=== PATIENT | male | born 1935 | race Caucasian/White ===

== ENCOUNTER 2019-08-26 12:25 | Inpatient (IN) | payer MEDICARE ==
[~2019-08-26] VITALS: Ht 160 cm; Wt 65.9 kg
[2019-08-26] MEDS ORDERED: morphine 4 MG/ML inj SYRINge IV PRN (12:50)
[2019-08-26] MEDS ORDERED: normal saline 1000ML IV soln IVB ONE ×2 (12:50→13:05)
[2019-08-26] MEDS ORDERED: ondansetron/PF 4mg/2ml inj IV ONE (12:50)
[2019-08-26 13:10] LABS: BASOPHILS % (AUTO) 0.1 % (0-1); EOSINOPHILS % (AUTO) 0 % (0-6); HEMATOCRIT 38.5 % (42.0-52.0); HEMOGLOBIN 13.2 g/dl (14.0-17.9); LYMPHOCYTES % (AUTO) 9.4 % (21-51); MEAN CORPUSCULAR HEMOGLOBIN 33.9 PG (27.0-31.0); MEAN CORPUSCULAR HGB CONC 34.2 g/dL (33.0-36.5); MEAN PLATELET VOLUME 7.5 FL (7.4-10.4); MONOCYTES # (AUTO) 0.9 X10'3 (0-0.9); MONOCYTES % (AUTO) 8.6 % (2-12); NEUTROPHILS % (AUTO) 81.9 % (42-75); PLATELET COUNT 162 X10'3 (140-440); RED BLOOD COUNT 3.89 X10'6 (4.70-6.10); RED CELL DISTRIBUTION WIDTH 13.2 % (11.5-14.5); WHITE BLOOD COUNT 10.9 X10'3 (4.5-11.0)
[2019-08-26 13:15] LABS: CLARITY,URINE CLEAR (Clear); COLOR,URINE YELLOW (Yellow); GLUCOSE, URINE NEGATIVE (Neg); KETONES,URINE NEGATIVE (Neg); LEUKOCYTE ESTERASE ,URINE NEGATIVE (Neg); NITRITES, URINE NEGATIVE (Neg); OCCULT BLOOD,URINE TRACE-LYSED (Neg); PH,URINE 6.5 (4.8-8.0); PROTEIN,URINE NEGATIVE (Neg); UROBILINOGEN,URINE 0.2 E.U/dL (0.2-1.0)
[2019-08-26 13:16] LABS: UA COLLECTION TYPE VOIDED
[2019-08-26 13:23] LABS: ALANINE AMINOTRANSFERASE 20 U/L (12-78); ALBUMIN 2.9 G/DL (3.4-5.0); ALBUMIN/GLOBULIN RATIO 0.8 (1.1-1.5); ALKALINE PHOSPHATASE 77 IU/L (46-116); ANION GAP 7 (8-16); ASPARTATE AMINO TRANSFERASE 27 U/L (10-37); BILIRUBIN,TOTAL 1.4 MG/DL (0.1-1.0); BLOOD UREA NITROGEN 31 MG/DL (7-18); BUN/CREATININE RATIO 17.2 (5.4-32.0); CALCIUM 8.9 MG/DL (8.5-10.1); CHLORIDE 94 MMOL/L (99-107); GLUCOSE 128 MG/DL (70-104); LIPASE 178 U/L (73-393); POTASSIUM 4.4 MMOL/L (3.5-5.1); SODIUM 126 MMOL/L (135-145); TOTAL CARBON DIOXIDE 24.6 MMOL/L (24-32); TOTAL PROTEIN 6.4 G/DL (6.4-8.2); eGFR 36 ML/MIN
[2019-08-26 13:26] LABS: BACTERIA,URINE 1+ /HPF (Neg); RBC,URINE 0-2 /HPF (0-2); SQUAMOUS EPITHELIAL CELL,UR FEW /LPF (FEW); WBC,URINE 0-4 /HPF (0-4)
[2019-08-26] MEDS ORDERED: HYDROcodone/acetaminophen 5mg/325mg tablet PO PRN (14:00)
[2019-08-26] MEDS ORDERED: acetaminophen 325mg tablet PO PRN ×2 (14:00)
[2019-08-26] MEDS ORDERED: ondansetron/PF 4mg/2ml inj IV PRN (14:00)
[2019-08-26] MEDS ORDERED: mag hydrox/Alum hydrox/simeth 30ml oral suspension PO PRN (14:00)
[2019-08-26] MEDS ORDERED: DICL1KIT3 PO (14:03)
[2019-08-26] MEDS ORDERED: NITR0.4T51 SL (14:03)
[2019-08-26] MEDS ORDERED: LEVO25TA2 PO (14:03)
[2019-08-26] MEDS ORDERED: CALCIUM (14:03)
[2019-08-26] MEDS ORDERED: IBUP-1984 PO (14:03)
[2019-08-26] MEDS ORDERED: VITC500T PO (14:03)
[2019-08-26] MEDS ORDERED: ATOR40TA PO (14:03)
[2019-08-26] MEDS ORDERED: OMEG-117 PO (14:03)
[2019-08-26] MEDS ORDERED: ASPI-611 PO (14:03)
[2019-08-26] MEDS ORDERED: CHOL10006 PO (14:03)
[2019-08-26] MEDS ORDERED: PSYL575P22 PO (14:03)
[2019-08-26] MEDS ORDERED: ACET-1025 PO (14:04)
[2019-08-26] MEDS ORDERED: CALC1CAP18 PO (14:34)
[2019-08-26] MEDS ORDERED: nitroGLYCERIN 0.4mg SUBLingual tab SL PRN (15:05)
--- NOTE | 2019-08-26 15:55 | NUR ---
Spoke with Dr Murry regarding patient admitted on tele monitor r/t cardiac history. Per MD no need for tele monitor at this time. MD states he is also aware patient is short of breath.
--- NOTE | 2019-08-26 16:01 | NUR ---
received report from MEMO RODRIGUES. Awaiting patient arrival to room 360a.
--- NOTE | 2019-08-26 16:15 | NUR ---
Received patient to room 360A. Patient is alert and oriented and SOB at rest. Per transfer report MEMO Patrick states Dr. Murry is aware. composite bond technician at bedside. Oriented patient to room and call light. Call light is within patient's reach. Bed is low and locked.
[2019-08-26] MEDS: normal saline 1000ml 1,000 ML IV SCH (16:18)
[2019-08-26 16:24] VITALS: BP 117/74
--- NOTE | 2019-08-26 17:32 | NUR ---
DR ALDRIDGE IN TO SEE PATIENT.
--- NOTE | 2019-08-26 17:37 | NUR ---
MILK OF MAG OFFERED TO PATIENT FOR C/O CONSTIPATION. PATIENT REFUSES AT THIS TIME.
[2019-08-26] MEDS: magnesium hydroxide 30ml (MOM) UD suspension PO PRN (17:57)
--- NOTE | 2019-08-26 18:24 | NUR ---
Problems reprioritized. Patient report given, questions answered & plan of care reviewed with MEMO PATEL AND MEMO LEONE.
--- NOTE | 2019-08-26 18:30 | NUR ---
Patient in room [facility] 360. I have received report from MEMO Galvan and had the opportunity to ask questions and assume patient care. Addendum: 08/27/19 at 0437 by Boby Perez RN Amended: Links added.
[2019-08-26 19:30] VITALS: BP 133/62
--- NOTE | 2019-08-26 19:36 | NUR ---
PT UP TO BATHROOM SBA CATHERINE WELL. PT RR UP TO 36 WHEN AMB SAT 96% ON R/A AMB. RR DECREAS AFTER ACTIVITY. PT STATES "NORMAL" FOR HIM Addendum: 08/26/19 at 1937 by Boby Perez RN Amended: Links added.
[2019-08-26] MEDS: docusate sod 100mg capsule PO SCH (20:20)
[2019-08-26] MEDS: heparin, porcine 5000 units/ml vial SQ SCH (20:21)
[2019-08-27] VITALS: BP 150/92
[2019-08-27] MEDS: normal saline 1000ml 1,000 ML IV SCH ×3 (01:10→13:57)
[2019-08-27] MEDS: morphine 2 MG/ML inj. syringe IV PRN ×2 (01:10→21:56)
[2019-08-27 05:37] LABS: BASOPHILS % (AUTO) 0.1 % (0-1); EOSINOPHILS % (AUTO) 0.1 % (0-6); HEMATOCRIT 40.3 % (42.0-52.0); HEMOGLOBIN 13.7 g/dl (14.0-17.9); LYMPHOCYTES # (AUTO) 1.2 X10'3 (1.1-4.8); LYMPHOCYTES % (AUTO) 15.8 % (21-51); MEAN CORPUSCULAR HEMOGLOBIN 34.3 PG (27.0-31.0); MEAN CORPUSCULAR HGB CONC 34.1 g/dL (33.0-36.5); MEAN CORPUSCULAR VOLUME 100.7 FL (78-98); MEAN PLATELET VOLUME 8.2 FL (7.4-10.4); MONOCYTES # (AUTO) 0.9 X10'3 (0-0.9); MONOCYTES % (AUTO) 12.4 % (2-12); NEUTROPHILS # (AUTO) 5.3 X10'3 (1.8-7.7); NEUTROPHILS % (AUTO) 71.6 % (42-75); PLATELET COUNT 163 X10'3 (140-440); RED CELL DISTRIBUTION WIDTH 13.5 % (11.5-14.5); WHITE BLOOD COUNT 7.4 X10'3 (4.5-11.0)
[2019-08-27 05:57] LABS: ALBUMIN 2.6 G/DL (3.4-5.0); ANION GAP 7 (8-16); BLOOD UREA NITROGEN 24 MG/DL (7-18); BUN/CREATININE RATIO 14.8 (5.4-32.0); CALCIUM 8.5 MG/DL (8.5-10.1); CHLORIDE 105 MMOL/L (99-107); CREATININE 1.62 MG/DL (0.60-1.10); GLUCOSE 95 MG/DL (70-104); POTASSIUM 4.4 MMOL/L (3.5-5.1); SODIUM 136 MMOL/L (135-145); TOTAL CARBON DIOXIDE 24.1 MMOL/L (24-32); eGFR 41 ML/MIN
--- NOTE | 2019-08-27 06:13 | NUR ---
Problems reprioritized. Patient report given, questions answered & plan of care reviewed with MEMO Wilcox. Addendum: 08/27/19 at 0613 by Boby Perez RN Amended: Links added.
--- NOTE | 2019-08-27 06:29 | NUR ---
Patient in room [facility] 360. I have received report from MEMO NUÑEZ and had the opportunity to ask questions and assume patient care.
[2019-08-27] MEDS: aspirin 81mg tab.chew PO SCH (07:31)
[2019-08-27] MEDS: psyllium seed 3.4 gm packet PO SCH (07:31)
[2019-08-27] MEDS: calcium carbonate/vitamin D3 tablet PO SCH (07:31)
[2019-08-27] MEDS: levoTHYROXINE 25mcg tablet PO SCH (07:31)
[2019-08-27] MEDS: docusate sod 100mg capsule PO SCH ×2 (07:31→19:49)
[2019-08-27] MEDS: ascorbic acid 500mg tablet PO SCH (07:31)
[2019-08-27] MEDS: heparin, porcine 5000 units/ml vial SQ SCH ×2 (07:31→19:50)
[2019-08-27] MEDS: OMEGA-3/DHA/EPA/FISH OIL 1 EACH CAPSULE.DR PO SCH (07:31)
[2019-08-27] MEDS: vitamin D (cholecalciferol) 1,000 unit tablet PO SCH (07:31)
[2019-08-27] MEDS: atorvastatin 20mg tablet PO SCH (07:31)
[2019-08-27] MEDS ORDERED: metoprolol tartrate 1mg/ml inj IV PRN (07:35)
[2019-08-27] MEDS ORDERED: nitroGLYCERIN 0.4mg SUBLingual tab SL PRN (07:35)
[2019-08-27] MEDS ORDERED: regadenoson 0.4mg/5ml syringe IV ONE (07:35)
[2019-08-27] MEDS ORDERED: aminophylline 250mg/10ml inj. IV PRN (07:35)
[2019-08-27 08:00] VITALS: BP_SYST 146; BP_SYST 148; BP_SYST 149; BP_DIAS 80; BP_DIAS 90
--- NOTE | 2019-08-27 09:46 | NUR ---
DR RAMIREZ AWARE PATIENT HAD BREAKFAST AND COFFEE THIS AM PRIOR. RUDOLPH SCAN TO BE DONE TOMORROW.
[2019-08-27] MEDS: magnesium hydroxide 30ml (MOM) UD suspension PO PRN ×2 (09:49→19:49)
[2019-08-27] MEDS: HYDROcodone/acetaminophen 10/325mg tab PO PRN (09:50)
[2019-08-27 12:22] VITALS: BP 133/83
[2019-08-27] MEDS: bisacodyl 10mg suppository rectal RC PRN (13:57)
--- NOTE | 2019-08-27 18:08 | NUR ---
Miralax, MOM and dulcolax suppository have been ineffective. Dr. Murry notified.
--- NOTE | 2019-08-27 18:35 | NUR ---
Patient in room [facility] 360. I have received report from MEMO KABA and had the opportunity to ask questions and assume patient care. PT STATES HAD MOD BM THIS EVENING, FEELING RELIEF. Addendum: 08/27/19 at 1946 by Boby Perez RN Amended: Links added.
[2019-08-27 19:00] VITALS: BP_SYST 134; BP_SYST 143; BP_SYST 152; BP_DIAS 75; BP_DIAS 82; BP_DIAS 83
--- NOTE | 2019-08-27 19:05 | NUR ---
Problems reprioritized. Patient report given, questions answered & plan of care reviewed with MEMO NUÑEZ.
--- NOTE | 2019-08-27 19:45 | NUR ---
PT RR FAST AFTER AMB OR USING BATHROOM, PT STATES THIS IS "NORMAL" FOR HIM, RR BACK DOWN TO 20 TO 28 AT REST. Addendum: 08/28/19 at 0308 by Boby Perez RN Amended: Links added.
[2019-08-28] VITALS (11 sets, daily range): BP systolic 107–146; BP diastolic 59–89
[2019-08-28] MEDS: normal saline 1000ml 1,000 ML IV SCH ×2 (02:45→17:34)
[2019-08-28] MEDS: morphine 2 MG/ML inj. syringe IV PRN ×2 (03:39→20:58)
--- NOTE | 2019-08-28 05:21 | NUR ---
DAUGHTER CALLED TO GET UPDATE ON PATIENT. SHE WOULD LIKE MD TO CALL HER TODAY, WILL F/U IN REPORT. Addendum: 08/28/19 at 0521 by Boby Perez RN Amended: Links added.
[2019-08-28 06:15] LABS: BASOPHILS % (AUTO) 0.2 % (0-1); EOSINOPHILS % (AUTO) 0.4 % (0-6); HEMATOCRIT 35.5 % (42.0-52.0); HEMOGLOBIN 12.3 g/dl (14.0-17.9); LYMPHOCYTES # (AUTO) 0.9 X10'3 (1.1-4.8); LYMPHOCYTES % (AUTO) 12.9 % (21-51); MEAN CORPUSCULAR HEMOGLOBIN 34.6 PG (27.0-31.0); MEAN CORPUSCULAR HGB CONC 34.6 g/dL (33.0-36.5); MEAN PLATELET VOLUME 7.9 FL (7.4-10.4); MONOCYTES % (AUTO) 14.5 % (2-12); NEUTROPHILS # (AUTO) 4.9 X10'3 (1.8-7.7); PLATELET COUNT 172 X10'3 (140-440); RED BLOOD COUNT 3.55 X10'6 (4.70-6.10); RED CELL DISTRIBUTION WIDTH 13.6 % (11.5-14.5); WHITE BLOOD COUNT 6.8 X10'3 (4.5-11.0)
--- NOTE | 2019-08-28 06:28 | NUR ---
Problems reprioritized. Patient report given, questions answered & plan of care reviewed with MEMO COBB. Addendum: 08/28/19 at 0628 by Boby Perez RN Amended: Links added.
[2019-08-28 06:39] LABS: ALBUMIN 2.3 G/DL (3.4-5.0); ANION GAP 8 (8-16); BLOOD UREA NITROGEN 20 MG/DL (7-18); BUN/CREATININE RATIO 12.6 (5.4-32.0); CALCIUM 7.8 MG/DL (8.5-10.1); CHLORIDE 105 MMOL/L (99-107); CREATININE 1.59 MG/DL (0.60-1.10); GLUCOSE 92 MG/DL (70-104); POTASSIUM 3.7 MMOL/L (3.5-5.1); SODIUM 136 MMOL/L (135-145); TOTAL CARBON DIOXIDE 23.4 MMOL/L (24-32); eGFR 42 ML/MIN
[2019-08-28] MEDS: psyllium seed 3.4 gm packet PO SCH ×2 (08:00→15:13)
[2019-08-28] MEDS: vitamin D (cholecalciferol) 1,000 unit tablet PO SCH (08:11)
[2019-08-28] MEDS: levoTHYROXINE 25mcg tablet PO SCH (08:11)
[2019-08-28] MEDS: calcium carbonate/vitamin D3 tablet PO SCH (08:11)
[2019-08-28] MEDS: heparin, porcine 5000 units/ml vial SQ SCH ×2 (08:12→19:48)
[2019-08-28] MEDS: aspirin 81mg tab.chew PO SCH (08:12)
[2019-08-28] MEDS: ascorbic acid 500mg tablet PO SCH (08:12)
[2019-08-28] MEDS: atorvastatin 20mg tablet PO SCH (08:12)
[2019-08-28] MEDS: docusate sod 100mg capsule PO SCH ×2 (08:12→19:43)
[2019-08-28] MEDS: OMEGA-3/DHA/EPA/FISH OIL 1 EACH CAPSULE.DR PO SCH (08:13)
[2019-08-28] MEDS: magnesium hydroxide 30ml (MOM) UD suspension PO PRN (15:12)
[2019-08-28] MEDS: bisacodyl 10mg suppository rectal RC PRN (15:13)
--- NOTE | 2019-08-28 18:10 | NUR ---
Received report from primary care nurse Sue HAMPTON. Assumed patient care with Julissa HAMPTON. Patient is awake and alert on room air. In no apparent distress. Call light and items of frequent use within reach. Will continue to monitor for changes.
--- NOTE | 2019-08-28 18:33 | NUR ---
Patient in room [facility] 340. I have received report from Sue and had the opportunity to ask questions and assume patient care. Addendum: 08/28/19 at 1834 by Julissa Arzola RN Patient in room [facility] 340. I have received report from Sue HAMPTON and had the opportunity to ask questions and assume patient care.
[2019-08-29] VITALS: BP 129/72
[2019-08-29] MEDS: normal saline 1000ml 1,000 ML IV SCH ×3 (02:26→20:32)
[2019-08-29] MEDS: morphine 2 MG/ML inj. syringe IV PRN ×2 (03:33→17:17)
[2019-08-29] MEDS: HYDROcodone/acetaminophen 10/325mg tab PO PRN (04:37)
[2019-08-29 06:01] LABS: BASOPHILS % (AUTO) 0.3 % (0-1); EOSINOPHILS # (AUTO) 0.1 X10'3 (0-0.9); EOSINOPHILS % (AUTO) 0.9 % (0-6); HEMOGLOBIN 13.6 g/dl (14.0-17.9); LYMPHOCYTES # (AUTO) 1.4 X10'3 (1.1-4.8); LYMPHOCYTES % (AUTO) 17.9 % (21-51); MEAN CORPUSCULAR HEMOGLOBIN 33.6 PG (27.0-31.0); MEAN CORPUSCULAR HGB CONC 33.9 g/dL (33.0-36.5); MEAN CORPUSCULAR VOLUME 99.3 FL (78-98); MEAN PLATELET VOLUME 7.8 FL (7.4-10.4); MONOCYTES # (AUTO) 1.3 X10'3 (0-0.9); MONOCYTES % (AUTO) 16.4 % (2-12); NEUTROPHILS # (AUTO) 5.1 X10'3 (1.8-7.7); NEUTROPHILS % (AUTO) 64.5 % (42-75); PLATELET COUNT 201 X10'3 (140-440); RED BLOOD COUNT 4.03 X10'6 (4.70-6.10); RED CELL DISTRIBUTION WIDTH 13.7 % (11.5-14.5)
[2019-08-29 06:03] LABS: D-DIMER 2.63 MG/L FEU (0-0.50)
--- NOTE | 2019-08-29 06:21 | NUR ---
Problems reprioritized. Patient report given, questions answered & plan of care reviewed with Kamila HAMPTON.
[2019-08-29 06:27] LABS: ALBUMIN 2.5 G/DL (3.4-5.0); ANION GAP 7 (8-16); BLOOD UREA NITROGEN 18 MG/DL (7-18); CALCIUM 8.3 MG/DL (8.5-10.1); CHLORIDE 104 MMOL/L (99-107); CREATININE 1.63 MG/DL (0.60-1.10); GLUCOSE 103 MG/DL (70-104); POTASSIUM 3.9 MMOL/L (3.5-5.1); SODIUM 136 MMOL/L (135-145); TOTAL CARBON DIOXIDE 25.3 MMOL/L (24-32); eGFR 41 ML/MIN
--- NOTE | 2019-08-29 06:33 | NUR ---
Patient in room [facility] 340. I have received report from MEMO Adamson and joan Costa RN and had the opportunity to ask questions and assume patient care.
[2019-08-29 08:00] VITALS: BP_SYST 134; BP_SYST 150; BP_SYST 151; BP_DIAS 83; BP_DIAS 84; BP_DIAS 86
[2019-08-29] MEDS: calcium carbonate/vitamin D3 tablet PO SCH (08:00)
[2019-08-29] MEDS: vitamin D (cholecalciferol) 1,000 unit tablet PO SCH (08:00)
[2019-08-29] MEDS: ascorbic acid 500mg tablet PO SCH (08:00)
[2019-08-29] MEDS: levoTHYROXINE 25mcg tablet PO SCH (09:15)
[2019-08-29] MEDS: docusate sod 100mg capsule PO SCH ×2 (09:15→20:21)
[2019-08-29] MEDS: aspirin 81mg tab.chew PO SCH (09:15)
[2019-08-29] MEDS: OMEGA-3/DHA/EPA/FISH OIL 1 EACH CAPSULE.DR PO SCH (09:15)
[2019-08-29] MEDS: atorvastatin 20mg tablet PO SCH (09:15)
[2019-08-29] MEDS: heparin, porcine 5000 units/ml vial SQ SCH ×2 (09:15→20:23)
[2019-08-29] MEDS: psyllium seed 3.4 gm packet PO SCH (09:15)
[2019-08-29 11:00] VITALS: BP 136/90
[2019-08-29] MEDS: magnesium hydroxide 30ml (MOM) UD suspension PO PRN (17:16)
[2019-08-29] MEDS: bisacodyl 10mg suppository rectal RC PRN (17:16)
[2019-08-29 18:00] VITALS: BP 138/81
--- NOTE | 2019-08-29 18:35 | NUR ---
Problems reprioritized. Patient report given, questions answered & plan of care reviewed with MEMO Salas.
--- NOTE | 2019-08-29 18:41 | NUR ---
Patient in room [facility] 340. I have received report from Kamila HAMPTON and had the opportunity to ask questions and assume patient care.
[2019-08-29 20:00] VITALS: BP_SYST 136; BP_SYST 150; BP_SYST 156; BP_DIAS 82; BP_DIAS 86
[2019-08-30 00:25] VITALS: BP 141/80
--- NOTE | 2019-08-30 06:33 | NUR ---
Problems reprioritized. Patient report given, questions answered & plan of care reviewed with Ana HAMPTON.
[2019-08-30 06:51] LABS: ALBUMIN 2.6 G/DL (3.4-5.0); ANION GAP 10 (8-16); BLOOD UREA NITROGEN 18 MG/DL (7-18); BUN/CREATININE RATIO 11.8 (5.4-32.0); CALCIUM 8.4 MG/DL (8.5-10.1); CHLORIDE 104 MMOL/L (99-107); CREATININE 1.53 MG/DL (0.60-1.10); GLUCOSE 94 MG/DL (70-104); POTASSIUM 4.2 MMOL/L (3.5-5.1); SODIUM 136 MMOL/L (135-145); TOTAL CARBON DIOXIDE 21.9 MMOL/L (24-32); eGFR 44 ML/MIN
[2019-08-30] MEDS: normal saline 1000ml 1,000 ML IV SCH ×2 (07:57→17:58)
[2019-08-30 08:00] VITALS: BP_SYST 131; BP_SYST 132; BP_SYST 135; BP_DIAS 78; BP_DIAS 84; BP_DIAS 86
[2019-08-30] MEDS: heparin, porcine 5000 units/ml vial SQ SCH ×2 (08:00→19:23)
[2019-08-30 08:41] LABS: BASOPHILS % (AUTO) 0.3 % (0-1); EOSINOPHILS # (AUTO) 0.1 X10'3 (0-0.9); EOSINOPHILS % (AUTO) 0.9 % (0-6); HEMATOCRIT 42.2 % (42.0-52.0); HEMOGLOBIN 14.6 g/dl (14.0-17.9); LYMPHOCYTES # (AUTO) 1.6 X10'3 (1.1-4.8); MEAN CORPUSCULAR HEMOGLOBIN 34.3 PG (27.0-31.0); MEAN CORPUSCULAR HGB CONC 34.5 g/dL (33.0-36.5); MEAN CORPUSCULAR VOLUME 99.5 FL (78-98); MEAN PLATELET VOLUME 7.9 FL (7.4-10.4); MONOCYTES # (AUTO) 1.2 X10'3 (0-0.9); MONOCYTES % (AUTO) 15.2 % (2-12); NEUTROPHILS # (AUTO) 4.8 X10'3 (1.8-7.7); NEUTROPHILS % (AUTO) 62.6 % (42-75); PLATELET COUNT 226 X10'3 (140-440); RED BLOOD COUNT 4.24 X10'6 (4.70-6.10); RED CELL DISTRIBUTION WIDTH 13.4 % (11.5-14.5); WHITE BLOOD COUNT 7.7 X10'3 (4.5-11.0)
[2019-08-30] MEDS ORDERED: furosemide 40mg/4ml inj IV ONE (09:25)
[2019-08-30 09:53] LABS: TOTAL CELLS COUNTED 100
[2019-08-30 09:54] LABS: BURR CELLS FEW; PLATELET ESTIMATE NORMAL
--- NOTE | 2019-08-30 10:01 | NUR ---
pT. TAKEN OFF FLOOR TO [facility] FOR KIDNEY SCAN.
--- NOTE | 2019-08-30 10:24 | NUR ---
Pushed IV Lasix 40mg/4ml for 2 minutes per MD orders for Renal scan. No complications. Educated patient to be cautious with get up slow while getting out of a chair or bed, and this medication will cause him to have to urinate more often.
[2019-08-30 11:00] VITALS: BP 133/77
[2019-08-30] MEDS: docusate sod 100mg capsule PO SCH ×2 (11:22→19:22)
[2019-08-30] MEDS: OMEGA-3/DHA/EPA/FISH OIL 1 EACH CAPSULE.DR PO SCH (11:23)
[2019-08-30] MEDS: calcium carbonate/vitamin D3 tablet PO SCH (11:23)
[2019-08-30] MEDS: aspirin 81mg tab.chew PO SCH (11:23)
[2019-08-30] MEDS: atorvastatin 20mg tablet PO SCH (11:23)
[2019-08-30] MEDS: ascorbic acid 500mg tablet PO SCH (11:24)
[2019-08-30] MEDS: vitamin D (cholecalciferol) 1,000 unit tablet PO SCH (11:24)
[2019-08-30] MEDS: psyllium seed 3.4 gm packet PO SCH (11:24)
[2019-08-30] MEDS: levoTHYROXINE 25mcg tablet PO SCH (11:24)
--- NOTE | 2019-08-30 13:00 | NUR ---
Spoke to MD Dupree regarding results of kidney scan. 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 She plans to continue caring for the pt. outpatient. MD Alvarenga made aware. States she planned on discharging pt. today.
--- NOTE | 2019-08-30 17:00 | NUR ---
entry driver operator Rosalind ladd MD Lyle regarding pt. discharge. Let pt. know that he would most likely not be getting discharged today.
[2019-08-30] MEDS: magnesium hydroxide 30ml (MOM) UD suspension PO PRN (17:43)
--- NOTE | 2019-08-30 18:30 | NUR ---
Patient in room [facility] 340. I have received report from MEMO VALVERDE and had the opportunity to ask questions and assume patient care WITH MEMO WILLS. Addendum: 08/30/19 at 1909 by Boby Perez RN Amended: Links added.
--- NOTE | 2019-08-30 18:38 | NUR ---
Gave report to Sienna HAMPTON.
--- NOTE | 2019-08-30 18:48 | NUR ---
Patient in room [facility] 340. I have received report from Ana HAMPTON and had the opportunity to ask questions and assume patient care.
[2019-08-30 20:00] VITALS: BP_SYST 110; BP_SYST 97; BP_DIAS 57; BP_DIAS 63
[2019-08-30] MEDS: bisacodyl 10mg suppository rectal RC PRN (21:48)
[2019-08-31 00:13] VITALS: BP 147/88
[2019-08-31] MEDS: normal saline 1000ml 1,000 ML IV SCH ×2 (03:31→13:57)
[2019-08-31 05:51] LABS: BASOPHILS % (AUTO) 0.2 % (0-1); EOSINOPHILS # (AUTO) 0.1 X10'3 (0-0.9); HEMOGLOBIN 12.8 g/dl (14.0-17.9); LYMPHOCYTES # (AUTO) 1.3 X10'3 (1.1-4.8); LYMPHOCYTES % (AUTO) 19.5 % (21-51); MEAN CORPUSCULAR HEMOGLOBIN 33.5 PG (27.0-31.0); MEAN CORPUSCULAR HGB CONC 33.6 g/dL (33.0-36.5); MEAN CORPUSCULAR VOLUME 99.5 FL (78-98); MEAN PLATELET VOLUME 7.5 FL (7.4-10.4); MONOCYTES % (AUTO) 14.2 % (2-12); NEUTROPHILS # (AUTO) 4.4 X10'3 (1.8-7.7); NEUTROPHILS % (AUTO) 65.1 % (42-75); PLATELET COUNT 210 X10'3 (140-440); RED BLOOD COUNT 3.83 X10'6 (4.70-6.10); RED CELL DISTRIBUTION WIDTH 13.4 % (11.5-14.5); WHITE BLOOD COUNT 6.8 X10'3 (4.5-11.0)
[2019-08-31 06:03] LABS: ALBUMIN 2.2 G/DL (3.4-5.0); ANION GAP 10 (8-16); BLOOD UREA NITROGEN 21 MG/DL (7-18); BUN/CREATININE RATIO 13.4 (5.4-32.0); CALCIUM 7.7 MG/DL (8.5-10.1); CHLORIDE 104 MMOL/L (99-107); CREATININE 1.57 MG/DL (0.60-1.10); GLUCOSE 90 MG/DL (70-104); POTASSIUM 3.7 MMOL/L (3.5-5.1); SODIUM 137 MMOL/L (135-145); TOTAL CARBON DIOXIDE 23.3 MMOL/L (24-32); eGFR 43 ML/MIN
--- NOTE | 2019-08-31 06:10 | NUR ---
Problems reprioritized. Patient report given, questions answered & plan of care reviewed with Bill RN.
--- NOTE | 2019-08-31 06:19 | NUR ---
Problems reprioritized. Patient report given, questions answered & plan of care reviewed with MEMO Khan. Agree with nursing assessment done by MEMO Villafana. Addendum: 08/31/19 at 0620 by Boby Perez RN Amended: Links added.
--- NOTE | 2019-08-31 06:55 | NUR ---
Patient in room [facility] 340. I have received report from Julissa HAMPTON and had the opportunity to ask questions and assume patient care.
[2019-08-31 07:41] VITALS: BP 130/68
[2019-08-31] MEDS: aspirin 81mg tab.chew PO SCH (08:08)
[2019-08-31] MEDS: psyllium seed 3.4 gm packet PO SCH (08:08)
[2019-08-31] MEDS: atorvastatin 20mg tablet PO SCH (08:09)
[2019-08-31] MEDS: levoTHYROXINE 25mcg tablet PO SCH (08:09)
[2019-08-31] MEDS: calcium carbonate/vitamin D3 tablet PO SCH (08:09)
[2019-08-31] MEDS: ascorbic acid 500mg tablet PO SCH (08:09)
[2019-08-31] MEDS: vitamin D (cholecalciferol) 1,000 unit tablet PO SCH (08:09)
[2019-08-31] MEDS: OMEGA-3/DHA/EPA/FISH OIL 1 EACH CAPSULE.DR PO SCH (08:10)
[2019-08-31] MEDS: docusate sod 100mg capsule PO SCH (08:10)
[2019-08-31] MEDS: heparin, porcine 5000 units/ml vial SQ SCH (08:10)
[2019-08-31 11:00] VITALS: BP 113/66
[2019-08-31 11:30] VITALS: BP_SYST 108; BP_SYST 112; BP_SYST 113; BP_DIAS 66; BP_DIAS 67
[2019-08-31 11:41] VITALS: BP 92/44
--- NOTE | 2019-08-31 12:52 | NUR ---
Initial: Pt admit DX JOHN, L kidney hydronephrosis w/ uteropelvic junction obstruction pending urology eval. PO 25-50% avg regular diet increasing mostly to 50% more recently. LBM 08/28 w/ abdominal pain noted today. Ensure pudding BIDLD added to meals for additional needs. Will continue to monitor. Rec: 1. continue regular diet; encourage PO 2. ensure pudding BIDLD 3. routine bowel care 4. wt per rx Addendum: 08/31/19 at [address] Amended: Links added.
--- NOTE | 2019-08-31 13:34 | NUR ---
Sent this to hospitalist after clearing discharge with urologist. Bill Surg [id number] Re: Everette Chaves Spoke with Dr. Dupree and she stated patient is cleared for discharge, All we need is a routine discharge Thanks Bill.
--- NOTE | 2019-08-31 14:45 | NUR ---
Patient discharged into the care of his family. Patient had no new medications at discharge but was made aware that a follow up with Urologist was needed and scheduled in one weeks time. Patient IV was removed at discharge minimal bleeding at site, canula was whole and intact upon discharge.
--- NOTE | 2019-09-02 09:40 | NUR ---
Case management DC follow up: spoke to pt via telephone: reports feeling "alright, making progress". Denies bladder pain, flank pain, acute/continuous cp, emergent general pain, SOB, resp distress, NV, dizziness, DOUGLAS, blurry vision, syncope episodes, abnormal bruising/bleeding. pt stated took stool softner 09/01/19. Did not get much sleep during the night r/t gas pain. states he did have a regular BM this morning, gas pain resolved. able to urinate, normal stream. Verbalizes understanding of s/s that would warrant 9-11/ER visit for evaluation. acknowledges need to follow up w/[facility]P [facility] 09/03/19/ specialist/nphrologistJoon will contact pt for follow up appt. Verbalizes understanding of new/continued meds & why prescribed; taking Rx as ordered, no ase noted r/t polypharmacy. needs met, questions answered at DC, no further questions at this time.
== END 2019-08-31 14:45 | disposition home or self-care (01) | DRG 683 ==
LOC: ER 12:26 → ED HOLD 13:57 → SUR 3N 16:09
PROVIDERS: ADMIT Internal Medicine; ATTEND Internal Medicine
PROC: 4A02XM4 Measurement of Cardiac Total Activity, External Approach (ICD-10-PCS; principal; 2019-08-28)
PROC: CW101ZZ Planar Nuclear Medicine Imaging of Abdomen using Technetium 99m (Tc-99m) (ICD-10-PCS; 2019-08-30)
PROC: CT131ZZ Planar Nuclear Medicine Imaging of Kidneys, Ureters and Bladder using Technetium 99m (Tc-99m) (ICD-10-PCS; 2019-08-30)
DX: N17.9 Acute kidney failure, unspecified (principal); E87.1 Hypo-osmolality and hyponatremia; N13.0 Hydronephrosis with ureteropelvic junction obstruction; E03.9 Hypothyroidism, unspecified; E78.5 Hyperlipidemia, unspecified; K59.00 Constipation, unspecified; I25.10 Atherosclerotic heart disease of native coronary artery without angina pectoris; I25.2 Old myocardial infarction; Z95.1 Presence of aortocoronary bypass graft; Z79.899 Other long term (current) drug therapy; Z79.82 Long term (current) use of aspirin
CPT/HCPCS: 36415; 71046; 76700; 78452; 78708; 80048; 80053; 81001; 83690; 83880; 84484; 85025; 85379; 87081; 93005; 93017; 93306; 96360; 99285; A9500; A9562; G0378; J1644; J1940; J2270; J2785; J7030